=== PATIENT | female | born 1970 | race Caucasian/White ===

== ENCOUNTER → 2018-08-03 | Outpatient (CLI) | payer OTHER ==
--- NOTE | 2018-08-03 10:40 | Diagnostic Imaging Report ---
FLUOROSCOPIC UPPER GI WITH SMALL BOWEL FOLLOW THROUGH HISTORY: Abdominal pain, history of Crohn's disease, prior partial colonic resection DIRT SHOVELER: Adolfo Leggett MD Comparison: None. Procedure: Double contrast barium swallow and upper GI fluoroscopic exam was performed using thick and thin oral barium and effervescent crystals. Small bowel follow through was performed with spot radiographs of the terminal ileum. Radiation Exposure: Fluoroscopy Time: 1.6 minutes Radiation dose: 46.06 mGy Dose area product: 71.8 Gycm2 DISCUSSION: WINDOWS ADMIN: Four ovoid calcifications measuring up to 8 mm project over the medial right lower kidney at the level of the right L4 transverse process. ESOPHAGUS: Motility: Unremarkable. Brisk clearance of contrast. Mucosa: Unremarkable. Distensibility: Normal. GASTROESOPHAGEAL JUNCTION: Unremarkable. GASTROESOPHAGEAL REFLUX: Moderate inducible gastroesophageal reflux above the level of the conrado with water siphon test. STOMACH: Normally distensible and demonstrates normal contours and mucosal pattern. DUODENUM AND SMALL BOWEL: Unremarkable in appearance. Normal motility with passage of contrast into the colon. The terminal ileum is unremarkable in appearance. Cecum: Unremarkable in appearance. IMPRESSION: Normal motility and appearance of the small bowel with passage of contrast into the cecum and no evidence of obstruction. Moderate inducible gastroesophageal reflux. Calcifications measuring up to 8 mm overlying the medial right lower pole kidney could represent renal stones. Signed by: Dr. Adolfo Leggett MD on 08/03/2018 10:37 AM
== END ==
LOC: DX 07:39
PROVIDERS: ATTEND Surgery
DX: R10.9 Unspecified abdominal pain (principal); K50.90 Crohn's disease, unspecified, without complications
CPT/HCPCS: 74249; 81025

== ENCOUNTER → 2024-07-28 | Day surgery (SDC) | payer BC ==
[2024-07-23 12:08] LABS: BASOPHILS # (AUTO) 0.1 (0.0-0.1); BASOPHILS % 0.8 % (0.0-1.0); EOSINOPHILS # (AUTO) 0.1 (0.0-0.4); EOSINOPHILS % 1.5 % (0.0-6.0); HEMOGLOBIN 14.5 g/dL (12.0-16.0); LYMPHOCYTES # (AUTO) 1.9 (1.0-3.2); LYMPHOCYTES % 32.6 % (18.0-39.1); MEAN CORPUSCULAR HEMOGLOBIN 31.4 pg (28-32); MEAN CORPUSCULAR HGB CONC 31.5 g/dL (31-35); MEAN CORPUSCULAR VOLUME 99.6 fL (81-99); MONOCYTES # (AUTO) 0.5 (0.2-0.8); MONOCYTES % 7.9 % (4.4-11.3); NEUTROPHILS # (AUTO) 3.4 (2.1-6.9); NEUTROPHILS % 56.9 % (38.7-80.0); PLATELET COUNT 352 x10e3/uL (140-360); RED BLOOD COUNT 4.62 x10e6/uL (3.6-5.1); RED CELL DISTRIBUTION WIDTH 13.4 % (11.7-14.4); WHITE BLOOD COUNT 5.95 x10e3/uL (4.8-10.8)
[2024-07-23 12:38] LABS: ALBUMIN 3.9 g/dL (3.5-5.0); ALBUMIN/GLOBULIN RATIO 1.1 (0.8-2.0); ANION GAP 14.1 mmol/L (8-16); BILIRUBIN,TOTAL 1.9 mg/dL (0.2-1.2); CALCIUM 9.5 mg/dL (8.4-10.2); CREATININE, SERUM 0.84 mg/dL (0.57-1.11); POTASSIUM 4.1 mmol/L (3.5-5.1); TOTAL PROTEIN 7.4 g/dL (6.5-8.1)
[~2024-07-28] MED LIST: ALEVE220 M1 PO; DICYCLOMINE HCL20 MG PO; FENTANYL CITRATE/PF 100MCG/2 ML INJ ONE; LIDOCAINE HCL 2% LOCAL INJ 5 ML SDV VIAL INJ ONE; MELOXICAM7.5 MG PO; OMEPRAZOLE40 MG PO; PROPOFOL IV EMULSION 10 MG/ML 20 ML VIAL ONE; [UNRECOGNIZED DRUG - OTHER] PO
[2024-07-28] MEDS: LACTATED RINGER'S 1,000 ML ONE (07:50)
[2024-07-28 10:36] VITALS: TEMP 98.8
[2024-07-28 11:05] VITALS: BP 123/78; PULSE 86; RESP 16; O2SAT 98
== END | disposition home or self-care (01) ==
LOC: OR 06:59
PROVIDERS: ATTEND Surgery
DX: K52.9 Noninfective gastroenteritis and colitis, unspecified (principal); K29.01 Acute gastritis with bleeding; K29.50 Unspecified chronic gastritis without bleeding; K29.80 Duodenitis without bleeding; K63.3 Ulcer of intestine; K50.90 Crohn's disease, unspecified, without complications; K44.9 Diaphragmatic hernia without obstruction or gangrene; K21.9 Gastro-esophageal reflux disease without esophagitis; Z98.0 Intestinal bypass and anastomosis status; I10 Essential (primary) hypertension; Z88.6 Allergy status to analgesic agent; Z01.810 Encounter for preprocedural cardiovascular examination; Z01.812 Encounter for preprocedural laboratory examination; Z79.1 Long term (current) use of non-steroidal anti-inflammatories (NSAID); Z79.899 Other long term (current) drug therapy
CPT/HCPCS: 36415; 43239; 45380; 80053; 85025; 88305; 88342; 93005; J2003; J2704; J3010; J7121; 45378